=== PATIENT | female | born 1950 | race Caucasian/White ===

== ENCOUNTER 2020-04-19 07:50 | Outpatient (REF) | payer MEDICARE, OTHER, SELFPAY | END 2020-04-19 07:51 | disposition home or self-care (01) | LOC: HO.LAB 07:50 | PROVIDERS: Visit Provider Internal Medicine | DX: Z20.828 Contact with and (suspected) exposure to other viral communicable diseases (principal) | CPT/HCPCS: C9803; U0003 ==

== ENCOUNTER 2020-06-10 12:02 | Outpatient (REF) | payer MEDICARE, OTHER, SELFPAY | END 2020-06-10 12:03 | disposition home or self-care (01) | LOC: HO.LAB 12:02 | PROVIDERS: Visit Provider Internal Medicine | DX: Z20.822 Contact with and (suspected) exposure to COVID-19 (principal) | CPT/HCPCS: 36415; C9803; U0003; U0005 ==

== ENCOUNTER 2020-06-30 10:52 | Outpatient (REF) | payer MEDICARE, OTHER, SELFPAY | END 2020-06-30 10:53 | disposition home or self-care (01) | LOC: HO.LAB 10:52 | PROVIDERS: Visit Provider Internal Medicine | DX: Z20.822 Contact with and (suspected) exposure to COVID-19 (principal) | CPT/HCPCS: 36415; C9803; U0003; U0005 ==

== ENCOUNTER 2020-12-10 13:34 | Outpatient (REF) | payer MEDICARE, OTHER, SELFPAY | END 2020-12-10 13:35 | disposition home or self-care (01) | LOC: HO.LAB 13:34 | PROVIDERS: PCP Internal Medicine Endocrinology, Diabetes & Metabolism; Visit Provider Internal Medicine | DX: Z20.822 Contact with and (suspected) exposure to COVID-19 (principal) | CPT/HCPCS: C9803; U0003; U0005 ==